=== PATIENT | female | born 1995 | race Two or more races ===

== ENCOUNTER 2020-01-20 11:13 | Emergency (ER) | payer OTHER ==
[~2020-01-20] VITALS: Ht 157.5 cm; Wt 62.6 kg
[2020-01-20] MEDS ORDERED: PRENATABS FA T1 EACH (11:54)
[2020-01-20] MEDS ORDERED: DUI500 PO (15:36)
== END 2020-01-20 16:19 | disposition home or self-care (01) ==
LOC: ER 11:13
DX: O43.891 Other placental disorders, first trimester (principal); O26.891 Other specified pregnancy related conditions, first trimester; R10.2 Pelvic and perineal pain; R30.0 Dysuria; Z3A.10 10 weeks gestation of pregnancy

== ENCOUNTER → 2020-04-14 | Outpatient (CLI) | payer OTHER ==
[~2020-04-14] MED LIST: DUI500 PO; PRENATABS FA T1 EACH
== END | disposition home or self-care (01) ==
LOC: PRENATAL 08:00
PROVIDERS: ATTEND Obstetrics & Gynecology Maternal & Fetal Medicine
DX: O35.0XX1 Maternal care for (suspected) central nervous system malformation in fetus, fetus 1 (principal); O35.3XX1 Maternal care for (suspected) damage to fetus from viral disease in mother, fetus 1; O98.512 Other viral diseases complicating pregnancy, second trimester; Z36.89 Encounter for other specified antenatal screening; Z3A.22 22 weeks gestation of pregnancy